=== PATIENT | female | born 1945 | race Caucasian/White ===

== ENCOUNTER 2018-08-28 06:55 | Day surgery (SDC) | payer MEDICARE ==
[~2018-08-28] VITALS: Ht 152.4 cm; Wt 52.5 kg
[~2018-08-28 06:55] MED LIST: AMLODIPINE PO; ASPI-555 PO; ATOR40TA71 PO; CALC600T12 PO; CARB4TAB PO; CELE-84 PO; CLOP75TA32 PO; ERGO500014 PO; EZET10TA26 PO; LINA5TAB PO; LOSA50TA64 PO; MAGN400T40 PO; METF-444 PO; MULT-1258 PO; OMEP40CA37 PO; SODIUM CHLORIDE 0.9% 1000ML 1,000 ML IV ONE; [UNRECOGNIZED DRUG - CODE] PO
[2018-08-28 08:45] VITALS: BP 148/76
[2018-08-28] MEDS ORDERED: PROPOFOL 10 MG/ML 20ML VIAL IV ONE (10:12)
[2018-08-28 10:24] VITALS: BP 80/37
[2018-08-28 10:25] VITALS: BP 96/49
[2018-08-28 10:30] VITALS: BP 103/51
[2018-08-28 10:35] VITALS: BP 105/56
== END 2018-08-28 10:50 | disposition home or self-care (01) ==
LOC: ENDO 06:55 → DAH 06:55 → ENDO 10:50
PROVIDERS: ATTEND Internal Medicine
DX: Z12.11 Encounter for screening for malignant neoplasm of colon (principal); K57.30 Diverticulosis of large intestine without perforation or abscess without bleeding; K64.0 First degree hemorrhoids; K29.50 Unspecified chronic gastritis without bleeding; K21.0 Gastro-esophageal reflux disease with esophagitis; Z86.010 Personal history of colon polyps; Z80.0 Family history of malignant neoplasm of digestive organs; Z79.899 Other long term (current) drug therapy; E78.5 Hyperlipidemia, unspecified; E11.9 Type 2 diabetes mellitus without complications; I11.0 Hypertensive heart disease with heart failure; I50.9 Heart failure, unspecified; Z98.49 Cataract extraction status, unspecified eye; Z95.1 Presence of aortocoronary bypass graft; Z98.890 Other specified postprocedural states; Z88.2 Allergy status to sulfonamides; Z88.8 Allergy status to other drugs, medicaments and biological substances
CPT/HCPCS: 43239; 82948 ×2; 88305; 88342; 93005; A4606; G0105; J2704; J7030; 45380

== ENCOUNTER 2022-07-12 17:38 | Inpatient (IN) | payer MEDICARE ==
[~2022-07-12] VITALS: Ht 157.5 cm; Wt 44.6 kg
[~2022-07-12 17:38] MED LIST changes: -ASPI-555 PO; +ASPI-556 PO; +CALC-1125 PO; -CALC600T12 PO; -EZET10TA26 PO; +EZET10TA48 PO; +OMEP40CA21 PO; -OMEP40CA37 PO; -SODIUM CHLORIDE 0.9% 1000ML 1,000 ML IV ONE
[2022-07-12] MEDS ORDERED: VANCOMYCIN PROTOCOL PER PHARMACY IV SCH ×2 (18:00→18:30)
[2022-07-12] MEDS ORDERED: 0.9%NACL 10ML VIAL IVP PRN (18:30)
[2022-07-12] MEDS ORDERED: NACL 0.9% IV SCH (18:30)
[2022-07-12] MEDS ORDERED: 0.9%NACL 1000ML 1,000 ML IV SCH (18:30)
[2022-07-12] MEDS ORDERED: VANCOMYCIN IV SCH (18:30)
[2022-07-12 18:51] LABS: BASOPHILS % (AUTO) 0.7 % (0.0-5.0); EOSINOPHILS % (AUTO) 3.3 % (0.0-8.0); HEMATOCRIT 35.6 % (36-48); LYMPHOCYTES % (AUTO) 28.7 % (21.0-51.0); MEAN CORPUSCULAR HEMOGLOBIN 27.7 pg (27.0-33.0); MEAN CORPUSCULAR HGB CONC 31.5 g/dL (32.0-36.0); MEAN CORPUSCULAR VOLUME 87.9 fL (79-99); MONOCYTES % (AUTO) 11.9 % (3.0-13.0); NEUTROPHILS % (AUTO) 55.3 % (40.0-77.0); PLATELET COUNT (AUTO) 299 K/uL (130-400); RED BLOOD CELL COUNT(AUTO) 4.05 MIL/uL (4.00-5.50); RED CELL DISTRIBUTION WIDTH 13.9 % (11.0-15.5)
[2022-07-12 19:00] LABS: INR 0.96 (0.85-1.15); PROTHROMBIN TIME 10.5 SEC (9.6-11.6)
[2022-07-12 19:02] LABS: PARTIAL THROMBOPLASTIN TIME 25.9 SEC (26.3-35.5)
[2022-07-12 19:04] LABS: CREATININE 0.9 mg/dL (0.5-1.5); POTASSIUM 3.6 mmol/L (3.5-5.1)
[2022-07-12 19:09] LABS: ALBUMIN 3.9 g/dL (3.5-5.0); TOTAL PROTEIN, SERUM 7.9 g/dL (6.0-8.3)
[2022-07-12 19:10] LABS: MAGNESIUM 1.5 mg/dL (1.80-2.40); PHOSPHORUS 4.5 mg/dL (2.5-4.9)
[2022-07-12 19:11] LABS: HEMOGLOBIN A1C 7.3 % (4.0-6.0)
[2022-07-12] MEDS ORDERED: COMPOUND IV REFRIGERATED 1 EACH IVSOLN MISC PRN (19:30)
[2022-07-12 19:51] LABS: APPEARANCE,URINE CLEAR (CLEAR); BILIRUBIN,URINE NEGATIVE (NEGATIVE); COLOR,URINE COLORLESS (YELLOW); GLUCOSE, URINE (UA) >=1000 mg/dL (NEGATIVE); KETONES,URINE NEGATIVE (NEGATIVE); LEUKOCYTE ESTERASE ,URINE NEGATIVE Leu/uL (NEGATIVE); NITRATE,URINE NEGATIVE (NEGATIVE); OCCULT BLOOD,URINE NEGATIVE (NEGATIVE); PROTEIN,URINE NEGATIVE (NEGATIVE); UROBILINOGEN,URINE 0.2 mg/dL (0.2-1.0)
[2022-07-12] MEDS ORDERED: LIDOCAINE HCL-MPF 1% 2ML VIAL IV PRN (20:00)
[2022-07-12 20:08] LABS: SQUAMOUS EPITHELIAL CELL,UR RARE /HPF (0-2); WBC,URINE 0-1 /HPF (0-1)
[2022-07-12] MEDS: VANCOMYCIN IV SCH (20:25)
[2022-07-12] MEDS: NACL 0.9% IV SCH (20:25)
[2022-07-12] MEDS ORDERED: LEVOFLOXACIN 500 MG/D5W 100 ML 100 ML IV SCH (21:00)
[2022-07-12 21:40] VITALS: BP 146/77
[2022-07-12] MEDS: MAGNESIUM 2GM PREMIX 50ML 50 ML IV PRN (22:05)
[2022-07-12] MEDS: MORPHINE 4 MG SYG IVP PRN (22:05)
[2022-07-13] VITALS: BP 167/78
[2022-07-13] MEDS: MORPHINE 4 MG SYG IVP PRN ×3 (03:56→14:24)
[2022-07-13 05:44] VITALS: BP 155/72
[2022-07-13] MEDS ORDERED: DEXTROSE 50%-WATER 50 ML DISP.SYRIN IV ONE (06:05)
[2022-07-13] MEDS ORDERED: GLUCAGON 1MG KIT 1 MG ML IM PRN (06:30)
[2022-07-13] MEDS ORDERED: DEXTROSE 50%-WATER 50 ML DISP.SYRIN IV PRN (06:30)
[2022-07-13 08:00] VITALS: BP 150/71
[2022-07-13] MEDS: FAMOTIDINE 20MG VIAL IV SCH (08:15)
[2022-07-13] MEDS ORDERED: DEXTROSE 5 % AND 0.9 % NACL 1,000 ML IV ONE (09:29)
[2022-07-13] MEDS: DEXTROSE 5 % AND 0.9 % NACL 1,000 ML IV SCH (09:30)
[2022-07-13 12:00] VITALS: BP 155/75
[2022-07-13] MEDS: HEPARIN 5,000 UNIT VIAL SQ SCH ×2 (12:16→22:02)
[2022-07-13] MEDS ORDERED: LOSARTAN 50 MG TABLET PO SCH (13:30)
[2022-07-13 14:11] LABS: HEMATOCRIT 34.7 % (36-48); MEAN CORPUSCULAR HEMOGLOBIN 28.3 pg (27.0-33.0); MEAN CORPUSCULAR HGB CONC 32.3 g/dL (32.0-36.0); MEAN CORPUSCULAR VOLUME 87.6 fL (79-99); RED BLOOD CELL COUNT(AUTO) 3.96 MIL/uL (4.00-5.50); RED CELL DISTRIBUTION WIDTH 13.7 % (11.0-15.5); WHITE BLOOD COUNT (AUTO) 5.3 K/uL (4.8-10.8)
[2022-07-13] MEDS: CEFEPIME HCL 2 GM VIAL IVP SCH (14:22)
[2022-07-13] MEDS: 0.9%NACL 1000ML 1,000 ML IV SCH (14:23)
[2022-07-13 14:28] LABS: CREATININE 0.6 mg/dL (0.5-1.5); POTASSIUM 3.6 mmol/L (3.5-5.1)
[2022-07-13 14:55] LABS: PROTHROMBIN TIME 10.9 SEC (9.6-11.6)
[2022-07-13 14:56] LABS: PARTIAL THROMBOPLASTIN TIME 30.8 SEC (26.3-35.5)
[2022-07-13 16:00] VITALS: BP 170/79
[2022-07-13] MEDS: POTASSIUM CHLORIDE 20MEQ/100ML 100 ML IV PRN (17:21)
[2022-07-13 20:00] VITALS: BP 156/77
[2022-07-13] MEDS: NACL 0.9% IV SCH (22:01)
[2022-07-13] MEDS: VANCOMYCIN IV SCH (22:01)
[2022-07-13] MEDS: MORPHINE 2 MG SYG IVP PRN (23:26)
[2022-07-14] VITALS (7 sets, daily range): BP systolic 113–190; BP diastolic 62–83
[2022-07-14] MEDS: CEFEPIME HCL 2 GM VIAL IVP SCH ×2 (01:53→13:26)
[2022-07-14] MEDS: HEPARIN 5,000 UNIT VIAL SQ SCH ×3 (04:44→20:29)
[2022-07-14] MEDS: MORPHINE 2 MG SYG IVP PRN ×2 (04:45→14:42)
[2022-07-14] MEDS: DEXTROSE 5 % AND 0.9 % NACL 1,000 ML IV SCH (05:30)
[2022-07-14] MEDS: LOSARTAN 50 MG TABLET PO SCH (08:06)
[2022-07-14] MEDS: FAMOTIDINE 20MG VIAL IV SCH (08:53)
[2022-07-14] MEDS ORDERED: CLOPIDOGREL 75MG TAB PO SCH (09:00)
[2022-07-14] MEDS: 0.9%NACL 1000ML 1,000 ML IV SCH ×3 (10:00→20:43)
[2022-07-14] MEDS: VANCOMYCIN 750MG VIAL IVPB SCH (20:28)
[2022-07-14] MEDS: MORPHINE 4 MG SYG IVP PRN (20:29)
[2022-07-14] MEDS ORDERED: 0.9% NACL 250ML 250 ML IV SCH (21:00)
[2022-07-15] MEDS: DEXTROSE 5 % AND 0.9 % NACL 1,000 ML IV SCH ×2 (01:30→20:22)
[2022-07-15] MEDS: CEFEPIME HCL 2 GM VIAL IVP SCH (02:22)
[2022-07-15] MEDS: MORPHINE 2 MG SYG IVP PRN ×4 (02:31→20:18)
[2022-07-15 03:55] VITALS: BP 165/78
[2022-07-15] MEDS: HEPARIN 5,000 UNIT VIAL SQ SCH ×4 (04:06→22:42)
[2022-07-15 08:00] VITALS: BP 145/87
[2022-07-15] MEDS: FAMOTIDINE 20MG VIAL IV SCH (08:26)
[2022-07-15] MEDS: LOSARTAN 50 MG TABLET PO SCH (08:39)
[2022-07-15] MEDS: 0.9%NACL 1000ML 1,000 ML IV SCH ×2 (11:14→20:18)
[2022-07-15 12:00] VITALS: BP 148/77
[2022-07-15] MEDS: CEFEPIME HCL 1 GM VIAL IVP SCH (14:26)
[2022-07-15 16:00] VITALS: BP 147/76
[2022-07-15 20:12] VITALS: BP 156/76
[2022-07-15] MEDS: VANCOMYCIN 750MG VIAL IVPB SCH (20:20)
[2022-07-15] MEDS ORDERED: INSULIN HUMULIN R 100 UNIT/ML 3ML SQ ONE (22:00)
[2022-07-16] VITALS (7 sets, daily range): BP systolic 131–173; BP diastolic 59–89
[2022-07-16] MEDS: MORPHINE 2 MG SYG IVP PRN (00:20)
[2022-07-16] MEDS: CEFEPIME HCL 1 GM VIAL IVP SCH ×2 (02:32→14:28)
[2022-07-16] MEDS: 0.9%NACL 1000ML 1,000 ML IV SCH ×3 (02:32→21:16)
[2022-07-16] MEDS ORDERED: MORPHINE 2 MG SYG IM ONE (03:00)
[2022-07-16] MEDS: VANCOMYCIN 750MG VIAL IVPB SCH ×2 (05:18→19:10)
[2022-07-16] MEDS: HYDROCODONE/ACETAMINOPHEN 5/325 MG TAB PO PRN ×3 (09:44→19:58)
[2022-07-16] MEDS: LOSARTAN 50 MG TABLET PO SCH (09:45)
[2022-07-16] MEDS: FAMOTIDINE 20MG VIAL IV SCH (09:45)
[2022-07-16] MEDS: HEPARIN 5,000 UNIT VIAL SQ SCH ×2 (12:11→20:04)
[2022-07-16] MEDS: INSULIN HUMULIN R 100 UNIT/ML 3ML SQ SCH ×3 (12:22→20:08)
[2022-07-16] MEDS: DEXTROSE 5 % AND 0.9 % NACL 1,000 ML IV SCH (17:30)
[2022-07-17] MEDS: HYDROCODONE/ACETAMINOPHEN 5/325 MG TAB PO PRN ×5 (00:17→23:34)
[2022-07-17] MEDS: CEFEPIME HCL 1 GM VIAL IVP SCH ×2 (02:53→14:30)
[2022-07-17] MEDS: HEPARIN 5,000 UNIT VIAL SQ SCH ×3 (03:08→19:55)
[2022-07-17] MEDS: MORPHINE 2 MG SYG IVP PRN (03:09)
[2022-07-17 03:44] VITALS: BP 149/68
[2022-07-17] MEDS: INSULIN HUMULIN R 100 UNIT/ML 3ML SQ SCH ×4 (05:46→20:05)
[2022-07-17] MEDS: VANCOMYCIN 750MG VIAL IVPB SCH (06:12)
[2022-07-17 06:28] LABS: CREATININE 0.7 mg/dL (0.5-1.5); MAGNESIUM 1.5 mg/dL (1.80-2.40); POTASSIUM 3.5 mmol/L (3.5-5.1)
[2022-07-17 08:00] VITALS: BP 175/76
[2022-07-17] MEDS ORDERED: AMLODIPINE 5 MG TAB PO SCH (09:00)
[2022-07-17] MEDS: MAGNESIUM 2GM PREMIX 50ML 50 ML IV PRN (09:35)
[2022-07-17] MEDS: POLYETHYLENE GLYCOL 3350 17 GM POWD.PACK PO SCH ×3 (09:35→10:04)
[2022-07-17] MEDS: FAMOTIDINE 20MG VIAL IV SCH (09:36)
[2022-07-17] MEDS: KCL 20 MEQ ERTAB PO PRN ×2 (09:36→12:37)
[2022-07-17] MEDS ORDERED: DOCUSATE SODIUM 100 MG CAP PO ONE (09:46)
[2022-07-17] MEDS: DOCUSATE SODIUM 100 MG CAP PO SCH (09:47)
[2022-07-17] MEDS: 0.9%NACL 1000ML 1,000 ML IV SCH ×2 (09:55→20:08)
[2022-07-17 12:00] VITALS: BP 143/71
[2022-07-17 16:00] VITALS: BP 133/58
[2022-07-17 20:00] VITALS: BP 141/73
[2022-07-17] MEDS: VANCOMYCIN 500MG+NS 100ML 100 ML IV SCH (20:06)
[2022-07-17] MEDS: DEXTROSE 5 % AND 0.9 % NACL 1,000 ML IV SCH (21:00)
[2022-07-17 23:53] VITALS: BP 162/85
[2022-07-18] VITALS (39 sets, daily range): BP systolic 84–202; BP diastolic 42–102
[2022-07-18] MEDS: CEFEPIME HCL 1 GM VIAL IVP SCH ×2 (03:17→14:13)
[2022-07-18] MEDS: 0.9%NACL 1000ML 1,000 ML IV SCH ×2 (04:00→14:00)
[2022-07-18] MEDS: HEPARIN 5,000 UNIT VIAL SQ SCH ×3 (04:10→20:30)
[2022-07-18 04:24] LABS: BASOPHILS % (AUTO) 0.7 % (0.0-5.0); EOSINOPHILS % (AUTO) 4.9 % (0.0-8.0); HEMATOCRIT 34.7 % (36-48); LYMPHOCYTES % (AUTO) 20.9 % (21.0-51.0); MEAN CORPUSCULAR HEMOGLOBIN 28.3 pg (27.0-33.0); MEAN CORPUSCULAR VOLUME 88.5 fL (79-99); MONOCYTES % (AUTO) 9.4 % (3.0-13.0); NEUTROPHILS % (AUTO) 63.8 % (40.0-77.0); PLATELET COUNT (AUTO) 279 K/uL (130-400); RED BLOOD CELL COUNT(AUTO) 3.92 MIL/uL (4.00-5.50); WHITE BLOOD COUNT (AUTO) 6.1 K/uL (4.8-10.8)
[2022-07-18 04:34] LABS: CREATININE 0.7 mg/dL (0.5-1.5); MAGNESIUM 1.7 mg/dL (1.80-2.40); POTASSIUM 3.6 mmol/L (3.5-5.1)
[2022-07-18 04:38] LABS: INR 0.94 (0.85-1.15); PROTHROMBIN TIME 10.3 SEC (9.6-11.6)
[2022-07-18] MEDS: INSULIN HUMULIN R 100 UNIT/ML 3ML SQ SCH ×4 (06:11→21:00)
[2022-07-18] MEDS ORDERED: MIDAZOLAM HCL 1 MG/ML 2ML VIAL ONE ×2 (07:39→08:59)
[2022-07-18] MEDS ORDERED: NITROGLYCERIN 50MG VIAL ONE (07:39)
[2022-07-18] MEDS ORDERED: IODIXANOL 320 MG/ML 100 ML VIAL ONE ×2 (07:39→09:40)
[2022-07-18] MEDS ORDERED: FENTANYL CITRATE PF 50 MCG/1 ML 2ML VIAL ONE ×3 (07:39→10:18)
[2022-07-18] MEDS ORDERED: LIDOCAINE HCL-MPF 0.5% 50ML VIAL IJ ONE (07:40)
[2022-07-18] MEDS ORDERED: HEPARIN 10,000 UNIT/10ML (1,000 UNIT/ML) VIAL ONE ×2 (08:40→10:58)
[2022-07-18] MEDS ORDERED: LABETALOL 20MG VIAL IV ONE (08:45)
[2022-07-18] MEDS ORDERED: AMLODIPINE 5 MG TAB PO SCH (09:00)
[2022-07-18] MEDS: POLYETHYLENE GLYCOL 3350 17 GM POWD.PACK PO SCH (09:00)
[2022-07-18] MEDS: VANCOMYCIN 500MG+NS 100ML 100 ML IV SCH ×2 (09:00→22:05)
[2022-07-18] MEDS: LOSARTAN 50 MG TABLET PO SCH (09:00)
[2022-07-18] MEDS: FAMOTIDINE 20MG VIAL IV SCH (09:00)
[2022-07-18] MEDS: DEXTROSE 5 % AND 0.9 % NACL 1,000 ML IV SCH (09:30)
[2022-07-18] MEDS ORDERED: NITROGLYCERIN 0.4 MG SL TAB SL PRN (12:00)
[2022-07-18] MEDS ORDERED: 0.9%NACL 1000ML 1,000 ML IV SCH (12:00)
[2022-07-18] MEDS: DOCUSATE SODIUM 100 MG CAP PO SCH (12:00)
[2022-07-18] MEDS ORDERED: ASPIRIN 325MG EC TAB PO ONE (12:17)
[2022-07-18] MEDS ORDERED: CLOPIDOGREL 300MG TAB ONE (12:17)
[2022-07-18] MEDS: MORPHINE 2 MG SYG IVP PRN ×2 (14:13→18:46)
[2022-07-18] MEDS: MAGNESIUM 2GM PREMIX 50ML 50 ML IV PRN (14:56)
[2022-07-18] MEDS ORDERED: CLONIDINE HCL 0.1 MG TABLET PO PRN (15:30)
[2022-07-18] MEDS ORDERED: HYDRALAZINE 20MG/ML VIAL IV PRN (15:30)
[2022-07-19] VITALS (8 sets, daily range): BP systolic 105–156; BP diastolic 51–88
[2022-07-19] MEDS: CEFEPIME HCL 1 GM VIAL IVP SCH ×2 (03:52→14:59)
[2022-07-19] MEDS: HEPARIN 5,000 UNIT VIAL SQ SCH ×3 (03:59→21:12)
[2022-07-19] MEDS: DEXTROSE 5 % AND 0.9 % NACL 1,000 ML IV SCH (04:24)
[2022-07-19] MEDS: INSULIN HUMULIN R 100 UNIT/ML 3ML SQ SCH ×4 (06:16→21:13)
[2022-07-19] MEDS: POLYETHYLENE GLYCOL 3350 17 GM POWD.PACK PO SCH (09:00)
[2022-07-19] MEDS: ASPIRIN 81 MG EC TAB PO SCH (09:34)
[2022-07-19] MEDS: LOSARTAN 50 MG TABLET PO SCH (09:35)
[2022-07-19] MEDS: CLOPIDOGREL 75MG TAB PO SCH (09:42)
[2022-07-19] MEDS: 0.9%NACL 1000ML 1,000 ML IV SCH ×3 (10:00→21:06)
[2022-07-19] MEDS: VANCOMYCIN 500MG+NS 100ML 100 ML IV SCH ×2 (10:36→22:57)
[2022-07-19] MEDS: FAMOTIDINE 20MG VIAL IV SCH (10:36)
[2022-07-19] MEDS: MORPHINE 2 MG SYG IVP PRN (13:12)
[2022-07-19] MEDS: DOCUSATE SODIUM 100 MG CAP PO SCH (13:12)
[2022-07-20] MEDS: DEXTROSE 5 % AND 0.9 % NACL 1,000 ML IV SCH ×2 (01:30→21:29)
[2022-07-20 04:09] VITALS: BP 162/81
[2022-07-20] MEDS: HEPARIN 5,000 UNIT VIAL SQ SCH ×3 (04:23→20:30)
[2022-07-20] MEDS: 0.9%NACL 1000ML 1,000 ML IV SCH ×2 (04:30→14:51)
[2022-07-20] MEDS: CEFEPIME HCL 1 GM VIAL IVP SCH ×2 (04:30→14:50)
[2022-07-20] MEDS: INSULIN HUMULIN R 100 UNIT/ML 3ML SQ SCH ×4 (06:04→22:00)
[2022-07-20 07:20] VITALS: BP 156/83
[2022-07-20] MEDS: VANCOMYCIN 500MG+NS 100ML 100 ML IV SCH ×2 (09:21→21:53)
[2022-07-20] MEDS: FAMOTIDINE 20MG VIAL IV SCH (09:21)
[2022-07-20] MEDS: ASPIRIN 81 MG EC TAB PO SCH (09:21)
[2022-07-20] MEDS: POLYETHYLENE GLYCOL 3350 17 GM POWD.PACK PO SCH (09:21)
[2022-07-20] MEDS: LOSARTAN 50 MG TABLET PO SCH (09:21)
[2022-07-20] MEDS: HYDROCODONE/ACETAMINOPHEN 5/325 MG TAB PO PRN ×2 (09:22→22:05)
[2022-07-20] MEDS: CLOPIDOGREL 75MG TAB PO SCH (09:22)
[2022-07-20 11:30] VITALS: BP 147/80
[2022-07-20] MEDS ORDERED: HYDROCODONE/ACETAMINOPHEN 5/325 MG TAB PO SCH (12:00)
[2022-07-20] MEDS: DOCUSATE SODIUM 100 MG CAP PO SCH (14:51)
[2022-07-20 15:35] VITALS: BP 141/66
[2022-07-20 20:00] VITALS: BP 137/61
[2022-07-21] VITALS (25 sets, daily range): BP systolic 122–199; BP diastolic 43–107
[2022-07-21] MEDS: HYDROCODONE/ACETAMINOPHEN 5/325 MG TAB PO PRN (02:25)
[2022-07-21] MEDS: 0.9%NACL 1000ML 1,000 ML IV SCH ×3 (02:25→22:46)
[2022-07-21] MEDS: CEFEPIME HCL 1 GM VIAL IVP SCH ×3 (02:25→14:30)
[2022-07-21] MEDS: HEPARIN 5,000 UNIT VIAL SQ SCH ×3 (04:30→20:30)
[2022-07-21] MEDS: INSULIN HUMULIN R 100 UNIT/ML 3ML SQ SCH ×4 (06:08→21:00)
[2022-07-21] MEDS: FAMOTIDINE 20MG VIAL IV SCH (08:28)
[2022-07-21] MEDS: LOSARTAN 50 MG TABLET PO SCH (08:28)
[2022-07-21] MEDS: ASPIRIN 81 MG EC TAB PO SCH (08:28)
[2022-07-21] MEDS: VANCOMYCIN 500MG+NS 100ML 100 ML IV SCH ×2 (08:29→22:45)
[2022-07-21] MEDS: CLOPIDOGREL 75MG TAB PO SCH (08:29)
[2022-07-21] MEDS: POLYETHYLENE GLYCOL 3350 17 GM POWD.PACK PO SCH (08:29)
[2022-07-21] MEDS ORDERED: MORPHINE 2 MG SYG ONE (09:22)
[2022-07-21] MEDS ORDERED: BUPIVACAINE/PF 0.5% 30ML VIAL ONE (09:29)
[2022-07-21] MEDS ORDERED: HYDROCODONE/ACETAMINOPHEN 5/325 MG TAB PO PRN (09:30)
[2022-07-21] MEDS ORDERED: MORPHINE 2 MG SYG IVP PRN ×2 (09:30→17:00)
[2022-07-21] MEDS: DOCUSATE SODIUM 100 MG CAP PO SCH (12:00)
[2022-07-21] MEDS ORDERED: FENTANYL CITRATE PF 50 MCG/1 ML 2ML VIAL ONE (13:18)
[2022-07-21] MEDS ORDERED: MIDAZOLAM HCL 1 MG/ML 2ML VIAL ONE (13:18)
[2022-07-21] MEDS ORDERED: LIDOCAINE HCL 1% 20 ML VIAL INJ ONE (13:39)
[2022-07-21] MEDS: DEXTROSE 5 % AND 0.9 % NACL 1,000 ML IV SCH (16:29)
[2022-07-22] VITALS (25 sets, daily range): BP systolic 123–197; BP diastolic 66–112
[2022-07-22] MEDS: CEFEPIME HCL 1 GM VIAL IVP SCH ×2 (02:36→15:04)
[2022-07-22] MEDS: HYDROCODONE/ACETAMINOPHEN 5/325 MG TAB PO PRN ×3 (02:41→23:14)
[2022-07-22] MEDS: HEPARIN 5,000 UNIT VIAL SQ SCH ×3 (04:17→21:50)
[2022-07-22] MEDS: INSULIN HUMULIN R 100 UNIT/ML 3ML SQ SCH ×4 (07:30→21:50)
[2022-07-22] MEDS: 0.9%NACL 1000ML 1,000 ML IV SCH (08:00)
[2022-07-22] MEDS: FAMOTIDINE 20MG VIAL IV SCH (09:40)
[2022-07-22] MEDS: LOSARTAN 50 MG TABLET PO SCH (09:41)
[2022-07-22] MEDS: ASPIRIN 81 MG EC TAB PO SCH (09:41)
[2022-07-22] MEDS: POLYETHYLENE GLYCOL 3350 17 GM POWD.PACK PO SCH (09:42)
[2022-07-22] MEDS: CLOPIDOGREL 75MG TAB PO SCH (09:42)
[2022-07-22] MEDS: VANCOMYCIN 500MG+NS 100ML 100 ML IV SCH ×2 (09:44→21:51)
[2022-07-22] MEDS ORDERED: DILTIAZEM 25MG INJ IVP SCH (10:00)
[2022-07-22] MEDS ORDERED: PHARMACY COMMUNICATION MISC SCH (11:00)
[2022-07-22] MEDS ORDERED: DILTIAZEM 125MG+100 ML NS 125 ML IV SCH (11:30)
[2022-07-22] MEDS: DOCUSATE SODIUM 100 MG CAP PO SCH (12:00)
[2022-07-22 12:04] LABS: ALBUMIN 3.2 g/dL (3.5-5.0); CREATININE 0.7 mg/dL (0.5-1.5)
[2022-07-22 12:07] LABS: MAGNESIUM 1.3 mg/dL (1.80-2.40); TOTAL PROTEIN, SERUM 7.3 g/dL (6.0-8.3)
[2022-07-22 12:37] LABS: POTASSIUM 2.9 mmol/L (3.5-5.1)
[2022-07-22] MEDS: KCL 20 MEQ ERTAB PO PRN ×2 (12:39→14:13)
[2022-07-22] MEDS: MAGNESIUM 2GM PREMIX 50ML 50 ML IV PRN (12:41)
[2022-07-22] MEDS: DEXTROSE 5 % AND 0.9 % NACL 1,000 ML IV SCH (13:30)
[2022-07-22] MEDS: POTASSIUM CHLORIDE 20MEQ/100ML 100 ML IV PRN (13:44)
[2022-07-22 20:57] LABS: APPEARANCE,URINE CLEAR (CLEAR); BILIRUBIN,URINE NEGATIVE (NEGATIVE); COLOR,URINE LIGHT-YELLOW (YELLOW); GLUCOSE, URINE (UA) >=1000 mg/dL (NEGATIVE); KETONES,URINE 20 mg/dL (NEGATIVE); LEUKOCYTE ESTERASE ,URINE NEGATIVE Leu/uL (NEGATIVE); NITRATE,URINE NEGATIVE (NEGATIVE); PH,URINE 5.5 (5.0-8.0); PROTEIN,URINE 70 mg/dL (NEGATIVE); UROBILINOGEN,URINE 0.2 mg/dL (0.2-1.0)
[2022-07-22 20:59] LABS: MUCUS,URINE RARE LPF (None Seen); RBC,URINE 0-1 /HPF (0-1); SQUAMOUS EPITHELIAL CELL,UR RARE /HPF (0-2); WBC,URINE 0-1 /HPF (0-1)
[2022-07-22] MEDS ORDERED: 0.9%NACL 100ML 100 ML ONE (21:46)
[2022-07-23] MEDS ORDERED: CEVI30CA7 PO (00:11)
[2022-07-23] MEDS ORDERED: METF-446 PO (00:11)
[2022-07-23] MEDS ORDERED: AMLO-258 PO (00:11)
[2022-07-23] MEDS ORDERED: EMPA25TA PO (00:11)
[2022-07-23] MEDS ORDERED: FERR325T29 PO (00:11)
[2022-07-23] MEDS ORDERED: PREG75CA75 PO (00:11)
[2022-07-23] MEDS ORDERED: OMAD150T PO (00:11)
[2022-07-23 00:38] VITALS: BP 135/66
[2022-07-23 01:44] LABS: CHLORIDE,URINE RANDOM 89 mmol/L (110-250); CREATININE,URINE RANDOM 30 mg/dL (30-135); POTASSIUM,URINE RANDOM 22 mmol/L (25-125); SODIUM,URINE RANDOM 85 mmol/l (40-220)
[2022-07-23] MEDS: CEFEPIME HCL 1 GM VIAL IVP SCH ×2 (02:46→15:24)
[2022-07-23 03:41] LABS: BASOPHILS % (AUTO) 0.3 % (0.0-5.0); EOSINOPHILS % (AUTO) 0.5 % (0.0-8.0); HEMATOCRIT 31.3 % (36-48); LYMPHOCYTES % (AUTO) 14.4 % (21.0-51.0); MEAN CORPUSCULAR HEMOGLOBIN 28.4 pg (27.0-33.0); MEAN CORPUSCULAR HGB CONC 33.2 g/dL (32.0-36.0); MEAN CORPUSCULAR VOLUME 85.5 fL (79-99); MONOCYTES % (AUTO) 16.6 % (3.0-13.0); PLATELET COUNT (AUTO) 316 K/uL (130-400); RED BLOOD CELL COUNT(AUTO) 3.66 MIL/uL (4.00-5.50); RED CELL DISTRIBUTION WIDTH 14.4 % (11.0-15.5); WHITE BLOOD COUNT (AUTO) 8.6 K/uL (4.8-10.8)
[2022-07-23 04:00] VITALS: BP 139/74
[2022-07-23 04:04] LABS: ALBUMIN 3.4 g/dL (3.5-5.0); CREATININE 0.7 mg/dL (0.5-1.5); MAGNESIUM 2.1 mg/dL (1.80-2.40); PHOSPHORUS 2.7 mg/dL (2.5-4.9); POTASSIUM 3.3 mmol/L (3.5-5.1); THYROID STIMULATING HORMONE 1.31 uIU/mL (0.36-3.74); TOTAL PROTEIN, SERUM 7.6 g/dL (6.0-8.3)
[2022-07-23] MEDS: HEPARIN 5,000 UNIT VIAL SQ SCH ×3 (04:08→20:47)
[2022-07-23] MEDS: KCL 20 MEQ ERTAB PO PRN (04:14)
[2022-07-23] MEDS: POTASSIUM CHLORIDE 10% ELIXIR 20 MEQ/15 ML UDCUP PO PRN ×2 (04:14→10:08)
[2022-07-23] MEDS: INSULIN HUMULIN R 100 UNIT/ML 3ML SQ SCH ×4 (06:18→21:10)
[2022-07-23 07:00] VITALS: BP 178/83
[2022-07-23] MEDS: POLYETHYLENE GLYCOL 3350 17 GM POWD.PACK PO SCH (10:07)
[2022-07-23] MEDS: CLOPIDOGREL 75MG TAB PO SCH (10:09)
[2022-07-23] MEDS: FAMOTIDINE 20MG VIAL IV SCH (10:09)
[2022-07-23] MEDS: VANCOMYCIN 500MG+NS 100ML 100 ML IV SCH ×2 (10:09→20:10)
[2022-07-23] MEDS: LOSARTAN 50 MG TABLET PO SCH (10:09)
[2022-07-23] MEDS: ASPIRIN 81 MG EC TAB PO SCH (10:09)
[2022-07-23 11:00] VITALS: BP 175/86
[2022-07-23] MEDS ORDERED: ATORVASTATIN 40 MG TABLET PO SCH (11:30)
[2022-07-23] MEDS: MAGNESIUM 2GM PREMIX 50ML 50 ML IV PRN (15:23)
[2022-07-23] MEDS: DOCUSATE SODIUM 100 MG CAP PO SCH (15:24)
[2022-07-23 16:00] VITALS: BP 176/80
[2022-07-23] MEDS: HYDROCODONE/ACETAMINOPHEN 5/325 MG TAB PO PRN (18:04)
[2022-07-23 19:06] VITALS: BP 158/69
[2022-07-24] MEDS ORDERED: ATORVASTATIN 40 MG TABLET PO SCH (21:00)
== END 2022-07-24 01:22 | DRG 271 ==
LOC: EDH 17:38 → DIRECT 17:39 → UNDOADMIN 17:56 → DIRECT 21:02 → 3DH 21:02 → 2CH 07-18 12:44 → 3DH 07-18 21:00 → 2CV 07-22 11:28 → 2DH 07-22 14:07
PROVIDERS: ADMIT Hospitalist; ATTEND Hospitalist
PROC: 04CK3ZZ Extirpation of Matter from Right Femoral Artery, Percutaneous Approach (ICD-10-PCS; principal; 2022-07-18)
PROC: 047K3D1 Dilation of Right Femoral Artery with Intraluminal Device, using Drug-Coated Balloon, Percutaneous Approach (ICD-10-PCS; 2022-07-18)
PROC: 047M3D1 Dilation of Right Popliteal Artery with Intraluminal Device, using Drug-Coated Balloon, Percutaneous Approach (ICD-10-PCS; 2022-07-18)
PROC: 047T3ZZ Dilation of Right Peroneal Artery, Percutaneous Approach (ICD-10-PCS; 2022-07-18)
PROC: 047R3ZZ Dilation of Right Posterior Tibial Artery, Percutaneous Approach (ICD-10-PCS; 2022-07-18)
PROC: B41D1ZZ Fluoroscopy of Aorta and Bilateral Lower Extremity Arteries using Low Osmolar Contrast (ICD-10-PCS; 2022-07-18)
PROC: 0Y6P0Z0 Detachment at Right 1st Toe, Complete, Open Approach (ICD-10-PCS; 2022-07-21)
PROC: 0Y6V0Z0 Detachment at Right 4th Toe, Complete, Open Approach (ICD-10-PCS; 2022-07-21)
PROC: 0QBN0ZZ Excision of Right Metatarsal, Open Approach (ICD-10-PCS; 2022-07-21)
DX: E11.51 Type 2 diabetes mellitus with diabetic peripheral angiopathy without gangrene (principal); E87.1 Hypo-osmolality and hyponatremia; M86.8X7 Other osteomyelitis, ankle and foot; I47.1 Supraventricular tachycardia; L03.115 Cellulitis of right lower limb; Z20.822 Contact with and (suspected) exposure to COVID-19; E11.621 Type 2 diabetes mellitus with foot ulcer; L97.519 Non-pressure chronic ulcer of other part of right foot with unspecified severity; E11.69 Type 2 diabetes mellitus with other specified complication; E11.65 Type 2 diabetes mellitus with hyperglycemia; E11.40 Type 2 diabetes mellitus with diabetic neuropathy, unspecified; E78.5 Hyperlipidemia, unspecified; E83.42 Hypomagnesemia; E87.6 Hypokalemia; I10 Essential (primary) hypertension; J45.909 Unspecified asthma, uncomplicated; Z95.1 Presence of aortocoronary bypass graft; Z88.2 Allergy status to sulfonamides; Z88.0 Allergy status to penicillin; Z83.3 Family history of diabetes mellitus; Z82.49 Family history of ischemic heart disease and other diseases of the circulatory system; Z79.899 Other long term (current) drug therapy
CPT/HCPCS: 36415; 37225; 37228; 71045; 73630; 73718; 75625; 75716; 75774; 76770; 80048; 80053; 80202; 81001; 82436; 82533; 82550; 82570; 82948; 83036; 83605; 83735; 83874; 83880; 83935; 84100; 84132; 84133; 84145; 84300; 84443; 84484; 84550; 85025; 85027; 85347; 85610; 85730; 86850; 86900; 86901; 87070; 87076; 87077; 87186; 87635; 93005; 93306; 93925; 99156; 99157; C1724; C1769; C1893; C1894; G0378; J0692; J1644; J1815; J2250; J2270; J3010; J3370; J3475; J3480; J3490; J7030; J7042; J7050; J7070; Q9967

== ENCOUNTER 2022-10-21 08:15 | Observation (INO) | payer MEDICARE ==
[2022-10-17 14:07] LABS: BASOPHILS % (AUTO) 0.5 % (0.0-5.0); EOSINOPHILS % (AUTO) 5.7 % (0.0-8.0); HEMATOCRIT 30.9 % (36-48); LYMPHOCYTES % (AUTO) 24.1 % (21.0-51.0); MEAN CORPUSCULAR HEMOGLOBIN 24.6 pg (27.0-33.0); MEAN CORPUSCULAR HGB CONC 30.4 g/dL (32.0-36.0); MEAN CORPUSCULAR VOLUME 80.9 fL (79-99); MONOCYTES % (AUTO) 8.8 % (3.0-13.0); NEUTROPHILS % (AUTO) 60.6 % (40.0-77.0); PLATELET COUNT (AUTO) 406 K/uL (130-400); RED BLOOD CELL COUNT(AUTO) 3.82 MIL/uL (4.00-5.50); RED CELL DISTRIBUTION WIDTH 14.8 % (11.0-15.5); WHITE BLOOD COUNT (AUTO) 7.4 K/uL (4.8-10.8)
[2022-10-17 14:08] LABS: APPEARANCE,URINE CLEAR (CLEAR); BILIRUBIN,URINE NEGATIVE (NEGATIVE); COLOR,URINE YELLOW (YELLOW); GLUCOSE, URINE (UA) 150 mg/dL (NEGATIVE); KETONES,URINE NEGATIVE (NEGATIVE); LEUKOCYTE ESTERASE ,URINE 75 Leu/uL (NEGATIVE); NITRATE,URINE NEGATIVE (NEGATIVE); OCCULT BLOOD,URINE NEGATIVE (NEGATIVE); PROTEIN,URINE 20 mg/dL (NEGATIVE); UROBILINOGEN,URINE 0.2 mg/dL (0.2-1.0)
[2022-10-17 14:14] LABS: POTASSIUM 4.2 mmol/L (3.5-5.1)
[2022-10-17 14:18] LABS: INR 1.03 (0.85-1.15); PROTHROMBIN TIME 11.2 SEC (9.6-11.6)
[2022-10-17 14:19] LABS: BACTERIA,URINE RARE /HPF (None Seen); MUCUS,URINE RARE LPF (None Seen); SQUAMOUS EPITHELIAL CELL,UR RARE /HPF (0-2)
[2022-10-17 14:28] LABS: B-TYPE NATRIURETIC PEPTIDE 119 pg/mL (0-100)
[2022-10-20 13:58] VITALS: BP 110/57
[~2022-10-21] VITALS: Ht 157.5 cm; Wt 48.1 kg
[2022-10-21] VITALS (18 sets, daily range): BP systolic 92–154; BP diastolic 49–77
[~2022-10-21 08:15] MED LIST changes: +ACET-2079 PO; +ACET500P24 PO; +AEC81 PO; +AMIT10TA6 PO; +AMLO-258 PO; -AMLODIPINE PO; +ASCO500T10 PO; -ASPI-556 PO; +ATOR40TA69 PO; -ATOR40TA71 PO; -CALC-1125 PO; -CARB4TAB PO; -CELE-84 PO; +CEVI30CA7 PO; -ERGO500014 PO; +INSU200I SQ; +LACT10SO9 PO; -LINA5TAB PO; -MAGN400T40 PO; -METF-444 PO; +METF-446 PO; -MULT-1258 PO; +MULT-1367 PO; -OMEP40CA21 PO; +PANT40TA54 PO; +TRAM50TA4 PO; +VANC750P15 IV; +ZINC220C6 PO; -[UNRECOGNIZED DRUG - CODE] PO
[2022-10-21] MEDS ORDERED: 0.9% NACL 500ML IV.SOLN 500 ML IV ONE ×2 (08:50→19:30)
[2022-10-21] MEDS ORDERED: OMEP40CA21 PO (10:22)
[2022-10-21] MEDS ORDERED: HEPARIN 10,000 UNIT/10ML (1,000 UNIT/ML) VIAL ONE (11:50)
[2022-10-21] MEDS ORDERED: MIDAZOLAM HCL 1 MG/ML 2ML VIAL ONE ×2 (11:50→12:59)
[2022-10-21] MEDS ORDERED: FENTANYL CITRATE PF 50 MCG/1 ML 2ML VIAL ONE (11:50)
[2022-10-21] MEDS ORDERED: IODIXANOL 320 MG/ML 100 ML VIAL ONE (11:50)
[2022-10-21] MEDS ORDERED: LIDOCAINE HCL 400MG/20ML VIAL ONE (11:50)
[2022-10-21] MEDS ORDERED: NITROGLYCERIN 50MG VIAL ONE (11:50)
[2022-10-21] MEDS ORDERED: IOHEXOL-350 50ML VIAL IV ONE (13:55)
[2022-10-21] MEDS ORDERED: ASPIRIN 325MG EC TAB PO ONE (14:24)
[2022-10-21] MEDS ORDERED: CLOPIDOGREL 300MG TAB ONE (14:24)
[2022-10-21] MEDS ORDERED: DEXTROSE 50%-WATER 50 ML DISP.SYRIN IV PRN (14:30)
[2022-10-21] MEDS ORDERED: NITROGLYCERIN 0.4 MG SL TAB SL PRN (14:30)
[2022-10-21] MEDS ORDERED: METOPROLOL TARTRATE 1 MG/ML 5ML VIAL IV PRN (14:30)
[2022-10-21] MEDS ORDERED: GLUCAGON 1MG KIT 1 MG ML IM PRN (14:30)
[2022-10-21] MEDS: 0.9%NACL 1000ML 1,000 ML IV SCH ×3 (15:35→20:30)
[2022-10-21] MEDS: INSULIN HUMULIN R 100 UNIT/ML 3ML SQ SCH ×2 (15:39→20:35)
[2022-10-21] MEDS ORDERED: VANCOMYCIN 750MG VIAL IVPB SCH (17:30)
[2022-10-21] MEDS ORDERED: TRAMADOL HCL 50 MG TABLET PO PRN (17:30)
[2022-10-21] MEDS ORDERED: 0.9% NACL 250ML IVPB SCH (17:30)
[2022-10-21] MEDS ORDERED: VANCOMYCIN PROTOCOL PER PHARMACY IV SCH ×2 (17:30→18:00)
[2022-10-21] MEDS ORDERED: ACETAMINOPHEN PO PRN (17:30)
[2022-10-21] MEDS ORDERED: LACTULOSE 20 GM/30 ML UDCUP PO PRN (17:30)
[2022-10-21] MEDS: ACETAMINOPHEN WITH CODEINE 1 TAB TAB PO PRN ×2 (18:28→23:45)
[2022-10-21] MEDS ORDERED: ACETAMINOPHEN 500 MG TABLET PO PRN (18:30)
[2022-10-21] MEDS ORDERED: PHARMACY COMMUNICATION MISC SCH (18:30)
[2022-10-21 18:40] LABS: HEMATOCRIT 29.1 % (36-48)
[2022-10-21] MEDS: ASCORBIC ACID 500 MG TAB PO SCH (20:17)
[2022-10-21] MEDS: ATORVASTATIN 40 MG TABLET PO SCH (20:17)
[2022-10-21] MEDS: AMITRIPTYLINE 10MG TAB PO SCH (20:30)
[2022-10-21] MEDS: CEVIMELINE HCL 30 MG PO SCH (20:30)
[2022-10-22] MEDS ORDERED: VANCOMYCIN 750MG 750 MG in 0.9% NACL 250ML 250 ML IVPB ONE (00:30)
[2022-10-22] MEDS ORDERED: PHARMACY COMMUNICATION MISC SCH (00:30)
[2022-10-22] MEDS ORDERED: VANCOMYCIN 750MG VIAL ONE (00:39)
[2022-10-22 01:28] VITALS: BP 107/51
[2022-10-22 04:14] VITALS: BP 110/50
[2022-10-22 04:41] LABS: BASOPHILS % (AUTO) 0.8 % (0.0-5.0); EOSINOPHILS % (AUTO) 0.4 % (0.0-8.0); HEMATOCRIT 26.4 % (36-48); LYMPHOCYTES % (AUTO) 30.6 % (21.0-51.0); MEAN CORPUSCULAR HEMOGLOBIN 24.9 pg (27.0-33.0); MEAN CORPUSCULAR HGB CONC 31.4 g/dL (32.0-36.0); MEAN CORPUSCULAR VOLUME 79.3 fL (79-99); MONOCYTES % (AUTO) 12.1 % (3.0-13.0); NEUTROPHILS % (AUTO) 55.9 % (40.0-77.0); PLATELET COUNT (AUTO) 285 K/uL (130-400); RED BLOOD CELL COUNT(AUTO) 3.33 MIL/uL (4.00-5.50); WHITE BLOOD COUNT (AUTO) 5.3 K/uL (4.8-10.8)
[2022-10-22 04:57] LABS: ALBUMIN 2.7 g/dL (3.5-5.0); CREATININE 0.6 mg/dL (0.5-1.5); POTASSIUM 3.2 mmol/L (3.5-5.1); TOTAL PROTEIN, SERUM 6.1 g/dL (6.0-8.3)
[2022-10-22] MEDS ORDERED: LIDOCAINE HCL-MPF 1% 2ML VIAL IV PRN (05:30)
[2022-10-22] MEDS ORDERED: POTASSIUM CHLORIDE 20MEQ/100ML 100 ML IV PRN (05:30)
[2022-10-22] MEDS ORDERED: POTASSIUM CHLORIDE 10% ELIXIR 20 MEQ/15 ML UDCUP PO PRN (05:30)
[2022-10-22] MEDS ORDERED: MAGNESIUM 2GM PREMIX 50ML 50 ML IV PRN (05:30)
[2022-10-22] MEDS: INSULIN HUMULIN R 100 UNIT/ML 3ML SQ SCH ×4 (05:44→20:57)
[2022-10-22 07:19] VITALS: BP 142/61
[2022-10-22] MEDS: ASPIRIN 81 MG EC TAB PO SCH (07:55)
[2022-10-22] MEDS: KCL 20 MEQ ERTAB PO PRN ×2 (07:55→15:14)
[2022-10-22] MEDS: LOSARTAN 50 MG TABLET PO SCH (07:55)
[2022-10-22] MEDS: AMLODIPINE 5 MG TAB PO SCH (07:55)
[2022-10-22] MEDS: PANTOPRAZOLE 40 MG TAB DR PO SCH (07:55)
[2022-10-22] MEDS: ACETAMINOPHEN WITH CODEINE 1 TAB TAB PO PRN ×2 (07:55→15:14)
[2022-10-22] MEDS: MULTIVITAMIN TABLET PO SCH (07:55)
[2022-10-22] MEDS: EZETIMIBE 10 MG TAB PO SCH (07:56)
[2022-10-22] MEDS: ASCORBIC ACID 500 MG TAB PO SCH ×2 (07:56→20:50)
[2022-10-22] MEDS: AMITRIPTYLINE 10MG TAB PO SCH ×3 (07:56→20:50)
[2022-10-22] MEDS: ZINC SULFATE 220 CAPSULE PO SCH (07:56)
[2022-10-22] MEDS: CEVIMELINE HCL 30 MG PO SCH ×3 (07:56→20:50)
[2022-10-22] MEDS: CLOPIDOGREL 75MG TAB PO SCH (07:56)
[2022-10-22] MEDS ORDERED: CLOPIDOGREL 75MG TAB PO SCH (09:00)
[2022-10-22] MEDS ORDERED: NON-FORMULARY MEDICATION 1 EACH (Omeprazole 40 MG) PO SCH (09:00)
[2022-10-22] MEDS ORDERED: NON-FORMULARY MEDICATION 1 EACH (Multivitamin 1 EACH) PO SCH (09:00)
[2022-10-22] MEDS ORDERED: VANCOMYCIN 750MG 750 MG in 0.9% NACL 250ML 250 ML IVPB SCH (09:00)
[2022-10-22] MEDS ORDERED: NON-FORMULARY MEDICATION 1 EACH (Amlodipine Besylate 10 MG) PO SCH (09:00)
[2022-10-22] MEDS ORDERED: 0.9% NACL 250ML 250 ML IV SCH (09:30)
[2022-10-22] MEDS: VANCOMYCIN 750MG VIAL IVPB SCH (09:55)
[2022-10-22 11:07] VITALS: BP 159/70
[2022-10-22 14:59] VITALS: BP 117/66
[2022-10-22] MEDS ORDERED: EMPA10TA PO (16:36)
[2022-10-22] MEDS: ATORVASTATIN 40 MG TABLET PO SCH (20:50)
[2022-10-22 21:14] VITALS: BP 124/60
[2022-10-23] MEDS: ACETAMINOPHEN WITH CODEINE 1 TAB TAB PO PRN ×2 (00:17→08:51)
[2022-10-23 00:20] VITALS: BP 116/44
[2022-10-23 04:34] VITALS: BP 138/69
[2022-10-23] MEDS: INSULIN HUMULIN R 100 UNIT/ML 3ML SQ SCH ×3 (06:38→15:52)
[2022-10-23 08:00] VITALS: BP 123/65
[2022-10-23] MEDS: ASCORBIC ACID 500 MG TAB PO SCH (08:43)
[2022-10-23] MEDS: ZINC SULFATE 220 CAPSULE PO SCH (08:43)
[2022-10-23] MEDS: PANTOPRAZOLE 40 MG TAB DR PO SCH (08:43)
[2022-10-23] MEDS: AMLODIPINE 5 MG TAB PO SCH (08:44)
[2022-10-23] MEDS: MULTIVITAMIN TABLET PO SCH (08:44)
[2022-10-23] MEDS: LOSARTAN 50 MG TABLET PO SCH (08:44)
[2022-10-23] MEDS: ASPIRIN 81 MG EC TAB PO SCH (08:44)
[2022-10-23 08:45] LABS: BASOPHILS % (AUTO) 0.5 % (0.0-5.0); EOSINOPHILS % (AUTO) 5.5 % (0.0-8.0); HEMATOCRIT 28.8 % (36-48); LYMPHOCYTES % (AUTO) 30.5 % (21.0-51.0); MEAN CORPUSCULAR HEMOGLOBIN 24.2 pg (27.0-33.0); MEAN CORPUSCULAR HGB CONC 31.3 g/dL (32.0-36.0); MEAN CORPUSCULAR VOLUME 77.4 fL (79-99); NEUTROPHILS % (AUTO) 54.2 % (40.0-77.0); PLATELET COUNT (AUTO) 301 K/uL (130-400); RED BLOOD CELL COUNT(AUTO) 3.72 MIL/uL (4.00-5.50); RED CELL DISTRIBUTION WIDTH 15.3 % (11.0-15.5); WHITE BLOOD COUNT (AUTO) 6.4 K/uL (4.8-10.8)
[2022-10-23] MEDS: CLOPIDOGREL 75MG TAB PO SCH (08:46)
[2022-10-23] MEDS: EZETIMIBE 10 MG TAB PO SCH (08:48)
[2022-10-23] MEDS: VANCOMYCIN 750MG VIAL IVPB SCH (08:49)
[2022-10-23] MEDS: CEVIMELINE HCL 30 MG PO SCH ×2 (08:51→13:40)
[2022-10-23 08:59] LABS: CREATININE 0.6 mg/dL (0.5-1.5); POTASSIUM 3.9 mmol/L (3.5-5.1)
[2022-10-23] MEDS: AMITRIPTYLINE 10MG TAB PO SCH ×2 (09:19→13:48)
[2022-10-23 12:00] VITALS: BP 122/70
[2022-10-23 15:59] VITALS: BP 115/65
== END 2022-10-23 16:18 ==
LOC: DAH 08:15 → 2DH 08:16 → DAH 08:16
PROVIDERS: ADMIT Internal Medicine Pulmonary Disease; ATTEND Internal Medicine Pulmonary Disease
DX: E11.51 Type 2 diabetes mellitus with diabetic peripheral angiopathy without gangrene (principal); I70.212 Atherosclerosis of native arteries of extremities with intermittent claudication, left leg; I25.10 Atherosclerotic heart disease of native coronary artery without angina pectoris; M86.8X7 Other osteomyelitis, ankle and foot; I10 Essential (primary) hypertension; E78.5 Hyperlipidemia, unspecified; E11.9 Type 2 diabetes mellitus without complications; G62.9 Polyneuropathy, unspecified; K21.9 Gastro-esophageal reflux disease without esophagitis; M19.90 Unspecified osteoarthritis, unspecified site; M79.81 Nontraumatic hematoma of soft tissue; D50.9 Iron deficiency anemia, unspecified; Z88.0 Allergy status to penicillin; Z95.1 Presence of aortocoronary bypass graft; Z79.899 Other long term (current) drug therapy
CPT/HCPCS: 80048 ×2; 83880; 85025 ×3; 85610; 85730; 87088; 81001; 36415 ×4; 93005; 75710; 37227; 85014; 85018; 82948 ×9; 76882; 96376 ×2; 96365; 96366; 80053; 80202; C1769 ×3; C1894 ×2; C1893; C1724; C2623; C1725; C1876 ×2; C1887; G0378 ×47; J7040; J3010; J3490 ×2; J7030; J1644 ×2; J2250 ×2; Q9967 ×2; J1815 ×3; A4215; A4223 ×3; A4222; A4221; A4663; A4216; A4606; J7050 ×2; J3370 ×4; 99156; 99157

== ENCOUNTER → 2023-01-10 | Outpatient (CLI) | payer MEDICARE ==
[~2023-01-10] MED LIST changes: -ACET-2079 PO; -ACET500P24 PO; -INSU200I SQ; -LACT10SO9 PO; +OMEP40CA21 PO; -PANT40TA54 PO; -TRAM50TA4 PO; -VANC750P15 IV; -ZINC220C6 PO
== END | disposition home or self-care (01) ==
LOC: SHCH 12:25
PROVIDERS: ATTEND Internal Medicine Cardiovascular Disease
DX: I70.203 Unspecified atherosclerosis of native arteries of extremities, bilateral legs (principal)
CPT/HCPCS: 93925

== ENCOUNTER → 2023-04-12 | Outpatient (CLI) | payer MEDICARE ==
[~2023-04-12] MED LIST changes: -ASCO500T10 PO; +COLL30OI TP; +EMPA25TA PO; +FERR-72 PO; -MULT-1367 PO
== END | disposition home or self-care (01) ==
LOC: SHCH 12:41
PROVIDERS: ATTEND Internal Medicine Cardiovascular Disease
DX: I73.9 Peripheral vascular disease, unspecified (principal)
CPT/HCPCS: 93925

== ENCOUNTER 2023-07-11 14:50 | Inpatient (IN) | payer MEDICARE ==
[~2023-07-11] VITALS: Ht 157.5 cm; Wt 49.0 kg
[2023-07-11] MEDS ORDERED: VANCOMYCIN KIT 1 GM/250 ML IV.KIT IV ONE (15:30)
[2023-07-11] MEDS ORDERED: VANCOMYCIN PROTOCOL PER PHARMACY IV SCH (15:30)
[2023-07-11 16:48] LABS: BASOPHILS # (AUTO) 0.05 K/uL (0.00-0.20); BASOPHILS % (AUTO) 0.7 % (0.0-5.0); EOSINOPHILS # (AUTO) 0.28 K/uL (0.00-0.70); EOSINOPHILS % (AUTO) 3.9 % (0.0-8.0); HEMATOCRIT 33.9 % (36-48); IMMATURE GRANULOCYTE ABSOLUTE 0.01 K/uL (0-1); LYMPHOCYTES # (AUTO) 1.7 K/uL (1.0-4.8); LYMPHOCYTES % (AUTO) 23.9 % (21.0-51.0); MEAN CORPUSCULAR HGB CONC 32.4 g/dL (32.0-36.0); MEAN CORPUSCULAR VOLUME 86.3 fL (79-99); MONOCYTES # (AUTO) 0.7 K/uL (0.1-1.0); MONOCYTES % (AUTO) 9.2 % (3.0-13.0); NEUTROPHILS # (AUTO) 4.4 K/uL (1.8-7.7); NEUTROPHILS % (AUTO) 62.2 % (40.0-77.0); PLATELET COUNT (AUTO) 276 K/uL (130-400); RED BLOOD CELL COUNT(AUTO) 3.93 MIL/uL (4.00-5.50); RED CELL DISTRIBUTION WIDTH 14.7 % (11.0-15.5); WHITE BLOOD COUNT (AUTO) 7.1 K/uL (4.8-10.8)
[2023-07-11 16:59] LABS: CREATININE 0.8 mg/dL (0.5-1.5); POTASSIUM 3.6 mmol/L (3.5-5.1)
[2023-07-11] MEDS ORDERED: MORPHINE 2 MG SYG IV PRN (17:00)
[2023-07-11] MEDS ORDERED: GLUCAGON 1MG KIT 1 MG ML IM PRN (17:00)
[2023-07-11] MEDS ORDERED: DEXTROSE 50%-WATER 50 ML DISP.SYRIN IV PRN (17:00)
[2023-07-11] MEDS ORDERED: DIPHENHYDRAMINE HCL 25 MG CAPSULE PO PRN (17:00)
[2023-07-11] MEDS ORDERED: MAG/ALUM/SIMETH 30 ML UDCUP PO PRN (17:00)
[2023-07-11] MEDS ORDERED: ONDANSETRON 4MG INJ IV PRN (17:00)
[2023-07-11] MEDS ORDERED: LACTULOSE 20 GM/30 ML UDCUP PO PRN (17:00)
[2023-07-11] MEDS ORDERED: GUAIFENESIN-DM 200/20 MG 10 ML PO PRN (17:00)
[2023-07-11] MEDS ORDERED: ACETAMINOPHEN 325 MG TAB PO PRN (17:00)
[2023-07-11] MEDS ORDERED: NITROGLYCERIN 0.4 MG SL TAB SL PRN (17:00)
[2023-07-11 17:03] LABS: ALBUMIN 3.4 g/dL (3.5-5.0); BILIRUBIN,TOTAL 0.3 mg/dL (0.2-1.0); TOTAL PROTEIN, SERUM 7.3 g/dL (6.0-8.3)
[2023-07-11] MEDS: MORPHINE 2 MG SYG IVP PRN ×2 (17:07→21:18)
[2023-07-11] MEDS: FAMOTIDINE 20MG VIAL IV SCH (21:17)
[2023-07-11] MEDS: INSULIN HUMULIN R 100 UNIT/ML 3ML SQ SCH (21:18)
[2023-07-11 22:59] VITALS: BP 135/76; PULSE 98; RESP 20
[2023-07-11 23:00] VITALS: O2SAT 99
[2023-07-12] MEDS: MORPHINE 2 MG SYG IVP PRN ×4 (01:25→20:22)
[2023-07-12 04:00] VITALS: BP 142/81; PULSE 98; RESP 20
[2023-07-12] MEDS: INSULIN HUMULIN R 100 UNIT/ML 3ML SQ SCH ×4 (07:30→20:09)
[2023-07-12 08:00] VITALS: BP 143/81; PULSE 100; RESP 17; O2SAT 100
[2023-07-12] MEDS ORDERED: IODOSORB GEL 40GM TP ONE (08:30)
[2023-07-12] MEDS: FAMOTIDINE 20MG VIAL IV SCH ×2 (09:45→20:00)
[2023-07-12] MEDS: ENOXAPARIN SODIUM 40 MG/0.4 ML SYRINGE SQ SCH (09:45)
[2023-07-12 12:00] VITALS: BP 127/78; PULSE 72; RESP 18
[2023-07-12 16:00] VITALS: BP 122/72; PULSE 97; RESP 18
[2023-07-12 19:35] VITALS: BP 129/76; PULSE 105; RESP 18
[2023-07-12 20:00] VITALS: O2SAT 98
[2023-07-12] MEDS: VANCOMYCIN 750MG VIAL IVPB SCH (20:00)
[2023-07-13] VITALS (7 sets, daily range): BP systolic 121–152; BP diastolic 65–111; PULSE 95–111; RESP 16–18; O2SAT 99
[2023-07-13] MEDS: MORPHINE 2 MG SYG IVP PRN ×2 (00:25→06:08)
[2023-07-13] MEDS: INSULIN HUMULIN R 100 UNIT/ML 3ML SQ SCH ×4 (05:51→20:36)
[2023-07-13] MEDS: FAMOTIDINE 20MG VIAL IV SCH ×2 (08:34→20:36)
[2023-07-13] MEDS: ENOXAPARIN SODIUM 40 MG/0.4 ML SYRINGE SQ SCH (08:35)
[2023-07-13] MEDS: VANCOMYCIN 750MG VIAL IVPB SCH ×2 (08:35→20:36)
[2023-07-13] MEDS: HYDROCODONE/ACETAMINOPHEN 5/325 MG TAB PO PRN (15:43)
[2023-07-13] MEDS: HYDROMORPHONE 1 MG INJ IVP PRN (17:20)
[2023-07-14] VITALS (7 sets, daily range): BP systolic 96–157; BP diastolic 58–81; PULSE 97–107; RESP 18–20; O2SAT 97
[2023-07-14] MEDS: HYDROCODONE/ACETAMINOPHEN 10/325 MG TAB PO PRN ×3 (02:47→11:37)
[2023-07-14] MEDS: HYDROMORPHONE 1 MG INJ IVP PRN ×2 (05:14→15:56)
[2023-07-14 05:25] LABS: BASOPHILS # (AUTO) 0.06 K/uL (0.00-0.20); BASOPHILS % (AUTO) 0.8 % (0.0-5.0); EOSINOPHILS # (AUTO) 0.32 K/uL (0.00-0.70); EOSINOPHILS % (AUTO) 4.4 % (0.0-8.0); HEMATOCRIT 31.8 % (36-48); IMMATURE GRANULOCYTE ABSOLUTE 0.02 K/uL (0-1); LYMPHOCYTES # (AUTO) 1.7 K/uL (1.0-4.8); LYMPHOCYTES % (AUTO) 23.7 % (21.0-51.0); MEAN CORPUSCULAR HEMOGLOBIN 27.6 pg (27.0-33.0); MEAN CORPUSCULAR HGB CONC 31.1 g/dL (32.0-36.0); MEAN CORPUSCULAR VOLUME 88.6 fL (79-99); MONOCYTES # (AUTO) 0.8 K/uL (0.1-1.0); MONOCYTES % (AUTO) 11.2 % (3.0-13.0); NEUTROPHILS # (AUTO) 4.4 K/uL (1.8-7.7); NEUTROPHILS % (AUTO) 59.6 % (40.0-77.0); PLATELET COUNT (AUTO) 253 K/uL (130-400); RED BLOOD CELL COUNT(AUTO) 3.59 MIL/uL (4.00-5.50); RED CELL DISTRIBUTION WIDTH 14.7 % (11.0-15.5); WHITE BLOOD COUNT (AUTO) 7.3 K/uL (4.8-10.8)
[2023-07-14 05:48] LABS: CREATININE 0.7 mg/dL (0.5-1.5); MAGNESIUM 1.5 mg/dL (1.80-2.40); PHOSPHORUS 3.9 mg/dL (2.5-4.9); POTASSIUM 3.3 mmol/L (3.5-5.1)
[2023-07-14] MEDS: INSULIN HUMULIN R 100 UNIT/ML 3ML SQ SCH ×4 (05:55→20:34)
[2023-07-14] MEDS: FAMOTIDINE 20MG VIAL IV SCH ×2 (08:20→20:12)
[2023-07-14] MEDS: ENOXAPARIN SODIUM 40 MG/0.4 ML SYRINGE SQ SCH (08:26)
[2023-07-14] MEDS: VANCOMYCIN 750MG VIAL IVPB SCH ×2 (08:43→20:12)
[2023-07-14] MEDS ORDERED: MAGNESIUM 2GM PREMIX 50ML 50 ML IV PRN (10:30)
[2023-07-14] MEDS ORDERED: POTASSIUM CHLORIDE 20MEQ/100ML 100 ML IV PRN (10:30)
[2023-07-14] MEDS ORDERED: POTASSIUM CHLORIDE 10% ELIXIR 20 MEQ/15 ML UDCUP PO PRN (10:30)
[2023-07-14] MEDS: KCL 20 MEQ ERTAB PO PRN ×2 (11:09→15:16)
[2023-07-14] MEDS: AMITRIPTYLINE 10MG TAB PO SCH (20:12)
[2023-07-14] MEDS: ATORVASTATIN 40 MG TABLET PO SCH (20:12)
[2023-07-15] VITALS (9 sets, daily range): BP systolic 117–168; BP diastolic 65–83; PULSE 92–108; RESP 16–20; O2SAT 97–98
[2023-07-15] MEDS: HYDROCODONE/ACETAMINOPHEN 10/325 MG TAB PO PRN ×3 (01:27→15:09)
[2023-07-15 05:16] LABS: BASOPHILS # (AUTO) 0.04 K/uL (0.00-0.20); BASOPHILS % (AUTO) 0.5 % (0.0-5.0); EOSINOPHILS % (AUTO) 2.7 % (0.0-8.0); HEMATOCRIT 33.1 % (36-48); IMMATURE GRANULOCYTE ABSOLUTE 0.02 K/uL (0-1); LYMPHOCYTES # (AUTO) 1.4 K/uL (1.0-4.8); LYMPHOCYTES % (AUTO) 19.1 % (21.0-51.0); MEAN CORPUSCULAR HEMOGLOBIN 27.2 pg (27.0-33.0); MEAN CORPUSCULAR HGB CONC 30.8 g/dL (32.0-36.0); MEAN CORPUSCULAR VOLUME 88.3 fL (79-99); MONOCYTES # (AUTO) 0.8 K/uL (0.1-1.0); MONOCYTES % (AUTO) 10.2 % (3.0-13.0); NEUTROPHILS % (AUTO) 67.2 % (40.0-77.0); PLATELET COUNT (AUTO) 264 K/uL (130-400); RED BLOOD CELL COUNT(AUTO) 3.75 MIL/uL (4.00-5.50); RED CELL DISTRIBUTION WIDTH 14.9 % (11.0-15.5); WHITE BLOOD COUNT (AUTO) 7.5 K/uL (4.8-10.8)
[2023-07-15 05:38] LABS: CREATININE 0.6 mg/dL (0.5-1.5); POTASSIUM 3.8 mmol/L (3.5-5.1)
[2023-07-15] MEDS: INSULIN HUMULIN R 100 UNIT/ML 3ML SQ SCH ×4 (06:12→21:21)
[2023-07-15] MEDS ORDERED: NON-FORMULARY MEDICATION 1 EACH (Amlodipine Besylate 10 MG) PO SCH (09:00)
[2023-07-15] MEDS: SANTYL TP SCH (09:00)
[2023-07-15] MEDS: AMITRIPTYLINE 10MG TAB PO SCH ×3 (09:06→19:51)
[2023-07-15] MEDS: AMLODIPINE 5 MG TAB PO SCH (09:06)
[2023-07-15] MEDS: KCL 20 MEQ ERTAB PO PRN ×2 (09:07→11:07)
[2023-07-15] MEDS: ASPIRIN 81 MG EC TAB PO SCH (09:07)
[2023-07-15] MEDS: EZETIMIBE 10 MG TAB PO SCH (09:07)
[2023-07-15] MEDS: CLOPIDOGREL 75MG TAB PO SCH (09:08)
[2023-07-15] MEDS: VANCOMYCIN 750MG VIAL IVPB SCH ×2 (09:10→19:50)
[2023-07-15] MEDS: ENOXAPARIN SODIUM 40 MG/0.4 ML SYRINGE SQ SCH (09:10)
[2023-07-15] MEDS: FAMOTIDINE 20MG VIAL IV SCH ×2 (09:10→19:50)
[2023-07-15] MEDS: LOSARTAN 50 MG TABLET PO SCH (09:11)
[2023-07-15] MEDS: ATORVASTATIN 40 MG TABLET PO SCH (19:50)
[2023-07-16] VITALS (8 sets, daily range): BP systolic 105–135; BP diastolic 57–82; PULSE 103–113; RESP 14–19; O2SAT 96–98
[2023-07-16] MEDS: HYDROCODONE/ACETAMINOPHEN 10/325 MG TAB PO PRN ×3 (02:20→15:05)
[2023-07-16] MEDS: INSULIN HUMULIN R 100 UNIT/ML 3ML SQ SCH ×5 (06:50→21:30)
[2023-07-16 07:24] LABS: BASOPHILS # (AUTO) 0.03 K/uL (0.00-0.20); BASOPHILS % (AUTO) 0.4 % (0.0-5.0); EOSINOPHILS # (AUTO) 0.26 K/uL (0.00-0.70); EOSINOPHILS % (AUTO) 3.4 % (0.0-8.0); HEMATOCRIT 34.6 % (36-48); IMMATURE GRANULOCYTE ABSOLUTE 0.02 K/uL (0-1); LYMPHOCYTES # (AUTO) 1.8 K/uL (1.0-4.8); LYMPHOCYTES % (AUTO) 23.4 % (21.0-51.0); MEAN CORPUSCULAR HEMOGLOBIN 27.7 pg (27.0-33.0); MEAN CORPUSCULAR HGB CONC 31.5 g/dL (32.0-36.0); MEAN CORPUSCULAR VOLUME 87.8 fL (79-99); MONOCYTES # (AUTO) 0.7 K/uL (0.1-1.0); MONOCYTES % (AUTO) 9.5 % (3.0-13.0); NEUTROPHILS # (AUTO) 4.8 K/uL (1.8-7.7); PLATELET COUNT (AUTO) 331 K/uL (130-400); RED BLOOD CELL COUNT(AUTO) 3.94 MIL/uL (4.00-5.50); RED CELL DISTRIBUTION WIDTH 15.1 % (11.0-15.5); WHITE BLOOD COUNT (AUTO) 7.7 K/uL (4.8-10.8)
[2023-07-16 07:47] LABS: CREATININE 0.6 mg/dL (0.5-1.5); POTASSIUM 4.5 mmol/L (3.5-5.1); VANCOMYCIN TROUGH 20.1 UG/ML (10.0-20.0)
[2023-07-16] MEDS: ASPIRIN 81 MG EC TAB PO SCH (08:49)
[2023-07-16] MEDS: CLOPIDOGREL 75MG TAB PO SCH (08:49)
[2023-07-16] MEDS: FAMOTIDINE 20MG VIAL IV SCH ×2 (08:49→19:32)
[2023-07-16] MEDS: VANCOMYCIN 500MG+NS 100ML 100 ML IV SCH ×2 (08:49→19:32)
[2023-07-16] MEDS: AMITRIPTYLINE 10MG TAB PO SCH ×3 (08:49→19:32)
[2023-07-16] MEDS: EZETIMIBE 10 MG TAB PO SCH (08:50)
[2023-07-16] MEDS: AMLODIPINE 5 MG TAB PO SCH (08:50)
[2023-07-16] MEDS: LOSARTAN 50 MG TABLET PO SCH (08:50)
[2023-07-16] MEDS: ENOXAPARIN SODIUM 40 MG/0.4 ML SYRINGE SQ SCH (08:56)
[2023-07-16] MEDS: SANTYL TP SCH (09:00)
[2023-07-16] MEDS: ATORVASTATIN 40 MG TABLET PO SCH (19:33)
[2023-07-17 03:48] VITALS: BP 123/62; PULSE 104; RESP 17
[2023-07-17] MEDS: HYDROCODONE/ACETAMINOPHEN 10/325 MG TAB PO PRN ×2 (03:48→10:38)
[2023-07-17] MEDS: INSULIN HUMULIN R 100 UNIT/ML 3ML SQ SCH ×2 (05:30→12:15)
[2023-07-17 08:00] VITALS: O2SAT 97
[2023-07-17 08:07] VITALS: BP 132/74; PULSE 121; RESP 19
[2023-07-17] MEDS: AMITRIPTYLINE 10MG TAB PO SCH (08:26)
[2023-07-17] MEDS: VANCOMYCIN 500MG+NS 100ML 100 ML IV SCH (08:26)
[2023-07-17] MEDS: FAMOTIDINE 20MG VIAL IV SCH (08:26)
[2023-07-17] MEDS: LOSARTAN 50 MG TABLET PO SCH (08:27)
[2023-07-17] MEDS: HYDROCODONE/ACETAMINOPHEN 5/325 MG TAB PO PRN ×2 (08:27→16:12)
[2023-07-17] MEDS: CLOPIDOGREL 75MG TAB PO SCH (08:27)
[2023-07-17] MEDS: ASPIRIN 81 MG EC TAB PO SCH (08:27)
[2023-07-17] MEDS: AMLODIPINE 5 MG TAB PO SCH (08:27)
[2023-07-17] MEDS: EZETIMIBE 10 MG TAB PO SCH (08:27)
[2023-07-17] MEDS: ENOXAPARIN SODIUM 40 MG/0.4 ML SYRINGE SQ SCH (08:29)
[2023-07-17] MEDS: SANTYL TP SCH (08:43)
[2023-07-17 11:42] VITALS: BP 134/71; PULSE 107; RESP 19
[2023-07-17] MEDS ORDERED: ACET-2079 PO (15:14)
[2023-07-17 16:04] VITALS: BP 111/65; PULSE 102; RESP 16
== END 2023-07-17 16:30 | disposition home or self-care (01) | DRG 638 ==
LOC: EDH 14:50 → EDHIP 14:51 → 3BH 22:42 → 4CH 07-14 21:33 → 4BH 07-15 06:39
PROVIDERS: ADMIT Hospitalist; ATTEND Hospitalist
PROC: 02HV33Z Insertion of Infusion Device into Superior Vena Cava, Percutaneous Approach (ICD-10-PCS; principal; 2023-07-11)
DX: E11.69 Type 2 diabetes mellitus with other specified complication (principal); L03.115 Cellulitis of right lower limb; M86.8X7 Other osteomyelitis, ankle and foot; E11.42 Type 2 diabetes mellitus with diabetic polyneuropathy; E11.622 Type 2 diabetes mellitus with other skin ulcer; E11.621 Type 2 diabetes mellitus with foot ulcer; I10 Essential (primary) hypertension; E11.51 Type 2 diabetes mellitus with diabetic peripheral angiopathy without gangrene; I25.10 Atherosclerotic heart disease of native coronary artery without angina pectoris; L97.519 Non-pressure chronic ulcer of other part of right foot with unspecified severity; B95.62 Methicillin resistant Staphylococcus aureus infection as the cause of diseases classified elsewhere; L97.529 Non-pressure chronic ulcer of other part of left foot with unspecified severity; E78.5 Hyperlipidemia, unspecified; G89.29 Other chronic pain; Z89.421 Acquired absence of other right toe(s); Z95.1 Presence of aortocoronary bypass graft; Z88.0 Allergy status to penicillin; Z88.2 Allergy status to sulfonamides; Z79.84 Long term (current) use of oral hypoglycemic drugs; Z79.899 Other long term (current) drug therapy
CPT/HCPCS: 36415; 71045; 73630; 73718; 80048; 80053; 80202; 82948; 83036; 83605; 83735; 84100; 85025; 85651; 87040; 87070; 87076; 87077; 87186; 93005; 93925; G0378; J1170; J1650; J1815; J2270; J3370; J3475; J3490; Q0163

== ENCOUNTER 2023-10-09 10:04 | Emergency (ER) | payer MEDICARE ==
[~2023-10-09] VITALS: Ht 157.5 cm; Wt 52.6 kg
[~2023-10-09 10:04] MED LIST changes: +ACET-2079 PO; -COLL30OI TP; -FERR-72 PO
[2023-10-09 10:11] VITALS: BP 139/67; PULSE 86; RESP 16; O2SAT 100
[2023-10-09 12:03] LABS: BASOPHILS # (AUTO) 0.05 K/uL (0.00-0.20); BASOPHILS % (AUTO) 0.6 % (0.0-5.0); EOSINOPHILS # (AUTO) 0.35 K/uL (0.00-0.70); EOSINOPHILS % (AUTO) 4.2 % (0.0-8.0); HEMATOCRIT 32.5 % (36-48); IMMATURE GRANULOCYTE ABSOLUTE 0.03 K/uL (0-1); LYMPHOCYTES # (AUTO) 1.8 K/uL (1.0-4.8); MEAN CORPUSCULAR HEMOGLOBIN 26.7 pg (27.0-33.0); MEAN CORPUSCULAR HGB CONC 31.4 g/dL (32.0-36.0); MEAN CORPUSCULAR VOLUME 85.1 fL (79-99); MONOCYTES # (AUTO) 0.7 K/uL (0.1-1.0); MONOCYTES % (AUTO) 8.8 % (3.0-13.0); NEUTROPHILS # (AUTO) 5.3 K/uL (1.8-7.7); PLATELET COUNT (AUTO) 321 K/uL (130-400); RED BLOOD CELL COUNT(AUTO) 3.82 MIL/uL (4.00-5.50); RED CELL DISTRIBUTION WIDTH 12.9 % (11.0-15.5); WHITE BLOOD COUNT (AUTO) 8.3 K/uL (4.8-10.8)
[2023-10-09] MEDS ORDERED: CLIN-141 PO (12:22)
[2023-10-09 12:25] LABS: CREATININE 0.6 mg/dL (0.5-1.5); POTASSIUM 3.3 mmol/L (3.5-5.1)
[2023-10-09 12:29] LABS: ALBUMIN 3.6 g/dL (3.5-5.0); BILIRUBIN,TOTAL 0.2 mg/dL (0.2-1.0); TOTAL PROTEIN, SERUM 7.6 g/dL (6.0-8.3)
[2023-10-09] MEDS ORDERED: POTASSIUM BICARB/CIT AC 25 MEQ TABLET.EFF PO ONE (12:30)
== END 2023-10-09 13:35 | disposition home or self-care (01) ==
LOC: EDH 10:04
DX: L03.116 Cellulitis of left lower limb (principal); E11.9 Type 2 diabetes mellitus without complications; I10 Essential (primary) hypertension; Z79.02 Long term (current) use of antithrombotics/antiplatelets; Z79.82 Long term (current) use of aspirin; Z79.84 Long term (current) use of oral hypoglycemic drugs; Z79.899 Other long term (current) drug therapy; Z88.0 Allergy status to penicillin; Z88.2 Allergy status to sulfonamides
CPT/HCPCS: 36415; 73660; 80053; 83605; 85025; 87040

== ENCOUNTER → 2023-10-11 | Outpatient (CLI) | payer MEDICARE ==
[~2023-10-11] MED LIST changes: +CLIN-141 PO
== END | disposition home or self-care (01) ==
LOC: SHCH 07:58
PROVIDERS: ATTEND Internal Medicine Cardiovascular Disease
DX: I73.9 Peripheral vascular disease, unspecified (principal)
CPT/HCPCS: 93925